=== PATIENT | female | born 1980 | race Hispanic/Latino ===

== ENCOUNTER 2019-08-29 17:40 | Inpatient (IN) | payer OTHER ==
[~2019-08-29] VITALS: Ht 170.2 cm; Wt 95.9 kg
[2019-08-29] MEDS ORDERED: ONDANSETRON HCL INJ 2MG/ML 2ML 2 MG/ML VIAL IV STA (18:39)
[2019-08-29] MEDS ORDERED: MORPHINE SULFATE 5 MG/ML VIAL IV ONE (18:45)
[2019-08-29] MEDS ORDERED: SODIUM CHLORIDE 0.9% 1000ML 1,000 ML IV SCH (18:45)
[2019-08-29] MEDS ORDERED: MORPHINE SULFATE INJ 4 MG/ML INJ 1ML IV ONE (19:00)
[2019-08-29 19:16] LABS: BILIRUBIN,URINE NEGATIVE (NEGATIVE); CLARITY,URINE CLEAR (CLEAR); COLOR,URINE YELLOW (YELLOW); KETONES,URINE NEGATIVE (NEGATIVE); LEUKOCYTE ESTERASE ,URINE TRACE (NEGATIVE); NITRITE,URINE NEGATIVE (NEGATIVE); PROTEIN,URINE DIPSTICK NEGATIVE (NEGATIVE); URINE UROBILINOGEN 0.2 mg/dL (0.2 - 1)
[2019-08-29 19:29] LABS: BACTERIA,URINE MODERATE /HPF; EPITHELIAL CELLS,URINE FEW /LPF; RBC,URINE 0-5 /HPF (0-5)
[2019-08-29 19:38] LABS: BASOPHILS % 0.2 % (0.0-1.0); EOSINOPHILS # (AUTO) 0.2 (0.0-0.4); EOSINOPHILS % 1.2 % (0.0-6.0); HEMATOCRIT 42.1 % (34.2-44.1); HEMOGLOBIN 14.6 g/dL (12.0-16.0); LYMPHOCYTES # (AUTO) 1.6 (1.0-3.2); LYMPHOCYTES % 10.4 % (18.0-39.1); MEAN CORPUSCULAR HEMOGLOBIN 33.3 pg (28-32); MEAN CORPUSCULAR HGB CONC 34.7 g/dL (31-35); MEAN CORPUSCULAR VOLUME 96.1 fL (81-99); MONOCYTES # (AUTO) 0.9 (0.2-0.8); MONOCYTES % 6.2 % (4.4-11.3); NEUTROPHILS # (AUTO) 12.5 (2.1-6.9); NEUTROPHILS % 81.5 % (38.7-80.0); PLATELET COUNT 300 x10e3/uL (140-360); RED BLOOD COUNT 4.38 x10e6/uL (3.6-5.1); RED CELL DISTRIBUTION WIDTH 11.9 % (11.7-14.4)
[2019-08-29 19:50] LABS: BLOOD UREA NITROGEN 12 mg/dL (7-26); BUN/CREATININE RATIO 16 (6-25); CALCIUM 9.7 mg/dL (8.4-10.2); CARBON DIOXIDE 26 mmol/L (22-29); CHLORIDE 103 mmol/L (98-107); CREATININE, SERUM 0.75 mg/dL (0.57-1.11); EST GLOMERULAR FILTRATION RATE > 60 ML/MIN (60-); GLUCOSE 92 mg/dL (74-118); SODIUM 138 mmol/L (136-145)
--- NOTE | 2019-08-29 20:29 | Diagnostic Imaging Report ---
EXAMINATION: CT of the abdomen and pelvis without contrast. TECHNIQUE: Helical CT images of the abdomen and pelvis were performed from the lung bases to the lesser trochanters without contrast. Coronal and sagittal reformatted images were obtained.Dose modulation, iterative reconstruction, and/or weight based adjustment of the mA/kV was utilized to reduce the radiation dose to as low as reasonably achievable. COMPARISON: None. CLINICAL HISTORY:Left-sided abdominal pain DISCUSSION: ABDOMEN/PELVIS: LOWER THORAX:Unremarkable. HEPATOBILIARY: No focal hepatic lesions. No intra-or extrahepatic biliary ductal dilation. The gallbladder is normal. SPLEEN: No splenomegaly. PANCREAS: No focal masses or ductal dilatation. ADRENALS: No adrenal nodules. KIDNEYS/URETERS: Bilateral punctate renal calculi. Mild left perinephric stranding. The left renal collecting system is duplex with 2 ureters proximally. PELVIC ORGANS/BLADDER: The bladder is normal. PERITONEUM/RETROPERITONEUM: No free air or fluid. LYMPH NODES: No intra-abdominal, retroperitoneal, pelvic or inguinal lymphadenopathy. VESSELS: Calcified pelvic phleboliths. GI TRACT: No distention or wall thickening. The appendix is normal. BONES AND SOFT TISSUE: No bony destructive lesions. No soft tissue abnormalities. IMPRESSION: Nonobstructing bilateral renal calculi. Signed by: Dr. Keon Salomon M.D. on 08/29/2019 8:26 PM
[2019-08-29] MEDS ORDERED: CEFTRIAXONE SOD 1 GM/NS 50 ML 50 ML IV ONE (20:30)
[2019-08-29] MEDS ORDERED: HYDROMORPHONE 1MG/1ML INJ IV STA (20:56)
[2019-08-29] MEDS ORDERED: MORPHINE SULFATE 2 MG/ML SYR 1ML IV PRN (21:00)
[2019-08-29] MEDS: SODIUM CHLORIDE 0.9% 1000ML 1,000 ML IV SCH (21:35)
[2019-08-29] MEDS: CEFTRIAXONE SOD 1 GM/NS 50 ML 50 ML IV SCH (21:35)
[2019-08-30] VITALS (10 sets, daily range): BP systolic 117–147; BP diastolic 57–71
[2019-08-30] MEDS: ONDANSETRON HCL INJ 2MG/ML 2ML 2 MG/ML VIAL IV PRN ×3 (00:13→18:48)
[2019-08-30] MEDS: MORPHINE SULFATE INJ 4 MG/ML INJ 1ML IV PRN ×4 (00:13→18:48)
[2019-08-30] MEDS: SODIUM CHLORIDE 0.9% 1000ML 1,000 ML IV SCH ×2 (05:35→15:00)
[2019-08-30 05:48] LABS: BASOPHILS % 0.3 % (0.0-1.0); EOSINOPHILS # (AUTO) 0.1 (0.0-0.4); EOSINOPHILS % 0.9 % (0.0-6.0); HEMATOCRIT 39.8 % (34.2-44.1); HEMOGLOBIN 13.3 g/dL (12.0-16.0); LYMPHOCYTES # (AUTO) 1.6 (1.0-3.2); LYMPHOCYTES % 11.6 % (18.0-39.1); MEAN CORPUSCULAR HEMOGLOBIN 32.7 pg (28-32); MEAN CORPUSCULAR HGB CONC 33.4 g/dL (31-35); MEAN CORPUSCULAR VOLUME 97.8 fL (81-99); NEUTROPHILS # (AUTO) 11.2 (2.1-6.9); NEUTROPHILS % 79.8 % (38.7-80.0); PLATELET COUNT 246 x10e3/uL (140-360); RED BLOOD COUNT 4.07 x10e6/uL (3.6-5.1); RED CELL DISTRIBUTION WIDTH 12.1 % (11.7-14.4)
[2019-08-30 06:12] LABS: ALANINE AMINOTRANSFERASE 22 IU/L (0-55); ALBUMIN 3.3 g/dL (3.5-5.0); ALBUMIN/GLOBULIN RATIO 1.1 (0.8-2.0); ALKALINE PHOSPHATASE 68 IU/L (40-150); BLOOD UREA NITROGEN 8 mg/dL (7-26); BUN/CREATININE RATIO 11 (6-25); CALCIUM 8.5 mg/dL (8.4-10.2); CARBON DIOXIDE 25 mmol/L (22-29); CHLORIDE 105 mmol/L (98-107); CREATININE, SERUM 0.73 mg/dL (0.57-1.11); EST GLOMERULAR FILTRATION RATE > 60 ML/MIN (60-); GLUCOSE 106 mg/dL (74-118); SODIUM 138 mmol/L (136-145)
[2019-08-30] MEDS ORDERED: HYDRALAZINE HCL 20 MG/ML VIAL IV PRN (07:30)
[2019-08-30] MEDS ORDERED: MELATONIN 5 MG TABLET PO PRN (07:30)
[2019-08-30] MEDS ORDERED: ACETAMIN/BUTALBITAL/CAFFEINE TAB PO PRN (08:15)
--- NOTE | 2019-08-30 19:00 | NUR ---
Bedside rounds completed with morning nurse. Pt alert and oriented to name. Lying in bed HOB 75 degrees. No c/o pain at this time. Call light within reach. Will continue to monitor.
[2019-08-30] MEDS: CEFTRIAXONE SOD 1 GM/NS 50 ML 50 ML IV SCH (21:00)
[2019-08-30] MEDS: ACETAMINOPHEN 325 MG TAB PO PRN (22:45)
--- NOTE | 2019-08-30 22:45 | NUR ---
Temp 102.3 oral, Tylenol 650mg admin. Tepid towel to forehead. Accepted 4oz water. Call jay within reach.
[2019-08-31] VITALS (7 sets, daily range): BP systolic 109–143; BP diastolic 57–76
[2019-08-31] MEDS: MORPHINE SULFATE INJ 4 MG/ML INJ 1ML IV PRN (02:00)
[2019-08-31] MEDS: SODIUM CHLORIDE 0.9% 1000ML 1,000 ML IV SCH ×4 (02:00→20:49)
--- NOTE | 2019-08-31 02:00 | NUR ---
Temp 100.5 oral, shivering and chills. c/o 9/10 left side pain. Morphine prn admin. Call jay within reach.
[2019-08-31] MEDS ORDERED: ACETAMINOPHEN 325 MG TAB PO ONE (03:15)
--- NOTE | 2019-08-31 03:25 | NUR ---
Temp 102.6 oral, Obdulia FERNANDEZ ordered x1 dose Tylenol 650mg admin. Will continue to monitor. Call jay within reach.
--- NOTE | 2019-08-31 03:50 | NUR ---
Temp 101.6 oral, Decreased left side pain 3/10. Call jay within reach.
--- NOTE | 2019-08-31 05:50 | NUR ---
Temp 97.7 oral. Patient denies shivering and chills. States, "I feel better". Call jay within reach.
[2019-08-31 05:51] LABS: BASOPHILS % 0.3 % (0.0-1.0); EOSINOPHILS # (AUTO) 0.1 (0.0-0.4); HEMATOCRIT 38.3 % (34.2-44.1); LYMPHOCYTES # (AUTO) 0.9 (1.0-3.2); LYMPHOCYTES % 8.8 % (18.0-39.1); MEAN CORPUSCULAR HEMOGLOBIN 32.7 pg (28-32); MEAN CORPUSCULAR HGB CONC 33.9 g/dL (31-35); MEAN CORPUSCULAR VOLUME 96.5 fL (81-99); MONOCYTES # (AUTO) 0.8 (0.2-0.8); MONOCYTES % 8.4 % (4.4-11.3); NEUTROPHILS # (AUTO) 8.2 (2.1-6.9); NEUTROPHILS % 81.2 % (38.7-80.0); PLATELET COUNT 202 x10e3/uL (140-360); RED BLOOD COUNT 3.97 x10e6/uL (3.6-5.1); RED CELL DISTRIBUTION WIDTH 11.8 % (11.7-14.4)
[2019-08-31 06:12] LABS: ANION GAP 14.2 mmol/L (8-16); BLOOD UREA NITROGEN 9 mg/dL (7-26); BUN/CREATININE RATIO 12 (6-25); CALCIUM 8.7 mg/dL (8.4-10.2); CARBON DIOXIDE 21 mmol/L (22-29); CHLORIDE 105 mmol/L (98-107); CREATININE, SERUM 0.76 mg/dL (0.57-1.11); EST GLOMERULAR FILTRATION RATE > 60 ML/MIN (60-); GLUCOSE 91 mg/dL (74-118); POTASSIUM 3.2 mmol/L (3.5-5.1); SODIUM 137 mmol/L (136-145)
[2019-08-31] MEDS: ACETAMINOPHEN 325 MG TAB PO PRN ×2 (11:49→16:44)
--- NOTE | 2019-08-31 13:50 | Consultation ---
DATE OF CONSULTATION: 08/30/2019 Urology Consultation Consultation is called by Dr. Haile. CHIEF COMPLAINT AND REASON FOR CONSULTATION: Kidney stones. HISTORY OF PRESENT ILLNESS: Ms. Heredia is a very pleasant 39-year-old female, admitted to the hospital with abdominal pain, was found to have bilateral punctate kidney stones. Positive dysuria denied gross hematuria. PAST MEDICAL HISTORY: Denied. MEDICATIONS: Please see MAR. ALLERGIES: NKDA. SOCIAL HISTORY: Denied smoking or drinking. FAMILY HISTORY: Denied urologic stones or malignancies. REVIEW OF SYSTEMS: Noncontributory other than problems mentioned above for 12-organ systems. PHYSICAL EXAMINATION: GENERAL: Middle-aged female, in no acute distress. VITAL SIGNS: Temperature 98.1, pulse 79, respirations 19, and blood pressure 131/71. BMI 33. HEENT: Sclerae anicteric. NECK: Supple. BACK: Without costovertebral angle tenderness bilaterally. ABDOMEN: Soft, nontender, and nondistended. No palpable mass. No palpable hernias. No palpable adenopathy. : Normal female external genitalia. EXTREMITIES: No edema. NEURO: Moves all 4 extremities. PSYCH: Alert. Mood appropriate. SKIN: Intact. Normal color. PERTINENT LABORATORY DATA: CT scan revealing bilateral punctate kidney stones, left duplicated collecting system. Urinalysis 10/08; whites 0, 5 reds. Sodium 138, potassium 4.0, chloride 105, bicarb 25, BUN 8, creatinine 0.73, and glucose 106. Hemoglobin 13, hematocrit 34, platelet count 246,000, and white cell count 14,000. IMPRESSION: 1. Bilateral kidney stones. 2. Urinary tract infections. 3. Microscopic hematuria. 4. Coagulopathy. 5. Hypertension. 6. Left-sided congenital duplication of kidney. 7. Leukocytosis. PLAN: The patient is on broad-spectrum antibiotics; for the small stones, employ a trial of passage. Microscopic hematuria, electively can have a cystoscopy. Thank you for allowing me to participate in the care of your patient. We will be happy to follow along with you. MD SHIVANI Albarran/MODL /[id number] cc: Daniel Haile MD MTDD
[2019-08-31] MEDS ORDERED: POLYETHYLENE GLYCOL 3350 17 GM PACK PO PRN (15:00)
--- NOTE | 2019-08-31 15:29 | Diagnostic Imaging Report ---
EXAMINATION: CHEST SINGLE (PORTABLE) INDICATION: Fever. COMPARISON: None FINDINGS: TUBES and LINES: None. LUNGS: Lungs are well inflated. Mild patchy left basilar opacity, likely atelectasis. There is no evidence of lobar lobar pneumonia or pulmonary edema. PLEURA: No pleural effusion or pneumothorax. HEART AND MEDIASTINUM: The cardiomediastinal silhouette is unremarkable. BONES AND SOFT TISSUES: No acute osseous abnormality. UPPER ABDOMEN: No free air under the diaphragm. IMPRESSION: No acute radiographic abnormality. Signed by: Dr. Julianne Rosas MD on 08/31/2019 3:26 PM
[2019-08-31 16:10] LABS: MAGNESIUM 1.7 MG/DL (1.3-2.1)
[2019-08-31] MEDS: FAMOTIDINE 20 MG TAB PO SCH (16:44)
[2019-08-31] MEDS: DOCUSATE SODIUM 100 MG CAP PO SCH (16:44)
--- NOTE | 2019-08-31 16:45 | NUR ---
JIM Floyd notified of mag and phos levels.
[2019-08-31] MEDS ORDERED: MAGNESIUM OXIDE 400 MG TAB PO ONE (17:00)
[2019-08-31] MEDS: PHOSPHORUS 250 MG TAB PO SCH (17:44)
--- NOTE | 2019-08-31 20:08 | NUR ---
RECEIVED T IN BED AOX3 .RESPIRATIONS AE EVEN AND UNLABORED DENIES PAIN PT HAS TEM 100.7 .FAMILY AT THE .BEDSIDE .CALL LIGHT WITH IN REACH .CONTINUE TO MONITOR
[2019-08-31] MEDS: CEFTRIAXONE SOD 1 GM/NS 50 ML 50 ML IV SCH ×2 (21:25→21:48)
[2019-09-01] VITALS: BP 142/82
[2019-09-01] MEDS: ACETAMINOPHEN 325 MG TAB PO PRN
[2019-09-01 04:00] VITALS: BP 99/60
[2019-09-01 05:13] LABS: BASOPHILS % 0.6 % (0.0-1.0); EOSINOPHILS % 0.6 % (0.0-6.0); HEMATOCRIT 40.1 % (34.2-44.1); HEMOGLOBIN 13.6 g/dL (12.0-16.0); MEAN CORPUSCULAR HEMOGLOBIN 32.9 pg (28-32); MEAN CORPUSCULAR HGB CONC 33.9 g/dL (31-35); MEAN CORPUSCULAR VOLUME 97.1 fL (81-99); MONOCYTES # (AUTO) 0.6 (0.2-0.8); MONOCYTES % 11.9 % (4.4-11.3); NEUTROPHILS # (AUTO) 3.2 (2.1-6.9); NEUTROPHILS % 65.7 % (38.7-80.0); PLATELET COUNT 169 x10e3/uL (140-360); RED BLOOD COUNT 4.13 x10e6/uL (3.6-5.1); RED CELL DISTRIBUTION WIDTH 11.9 % (11.7-14.4)
[2019-09-01 05:35] LABS: ANION GAP 13.3 mmol/L (8-16); BLOOD UREA NITROGEN 6 mg/dL (7-26); BUN/CREATININE RATIO 8 (6-25); CALCIUM 8.6 mg/dL (8.4-10.2); CARBON DIOXIDE 21 mmol/L (22-29); CHLORIDE 106 mmol/L (98-107); CREATININE, SERUM 0.71 mg/dL (0.57-1.11); EST GLOMERULAR FILTRATION RATE > 60 ML/MIN (60-); GLUCOSE 88 mg/dL (74-118); POTASSIUM 3.3 mmol/L (3.5-5.1); SODIUM 137 mmol/L (136-145)
--- NOTE | 2019-09-01 07:00 | NUR ---
received am report from nurse and morning rounds done. pt is alert resting in bed, no s/s of distress. call light within reach and instructed pt to call nurse for help.
[2019-09-01] MEDS: SODIUM CHLORIDE 0.9% 1000ML 1,000 ML IV SCH (07:24)
--- NOTE | 2019-09-01 07:30 | NUR ---
TEMPERATURE IS 101.2 AND GIVEN TYLENOL AND TEM WENT DOWN TO 98.7 C/O HEADACHE AND GIVEN ORDERED PAIN. MEDICATION .CONTINUE TO MONITOR .CALL LIGHT WITH IN REACH .BEDSIDE REPORT GIVEN TO THE ONCOMING NURSE
[2019-09-01 07:34] VITALS: BP 115/77
[2019-09-01] MEDS: DOCUSATE SODIUM 100 MG CAP PO SCH (10:00)
[2019-09-01] MEDS: PHOSPHORUS 250 MG TAB PO SCH (10:00)
[2019-09-01] MEDS: FAMOTIDINE 20 MG TAB PO SCH (10:00)
[2019-09-01 10:21] VITALS: BP 115/77
[2019-09-01] MEDS ORDERED: ASCORBIC ACID 500 MG TAB PO SCH (10:30)
[2019-09-01] MEDS ORDERED: CEFUROXIME250 MG PO (11:00)
[2019-09-01] MEDS ORDERED: ASCORBIC ACID500 MG PO (11:00)
[2019-09-01] MEDS ORDERED: COLACE100 MG PO (11:00)
[2019-09-01] MEDS ORDERED: ACETAMINOPHEN325 M1 PO (11:00)
[2019-09-01] MEDS ORDERED: K-PHOS NEUTRAL250 MG PO (11:00)
[2019-09-01] MEDS ORDERED: POTASSIUM CHLORIDE 20 MEQ TAB CR PO ONE (11:30)
[2019-09-01 11:37] VITALS: BP 142/84
--- NOTE | 2019-09-01 22:17 | Discharge Summary ---
HISTORY: Ms. Heredia is a 39-year-old female, who was admitted with constant sharp left lower back pain that began on August 29 around 09:00 a.m. She had associated nausea and vomiting, but denied any dysuria, hematuria, or fever. Pain medications improved her symptoms. She has past medical history of migraines. No past surgical history. FAMILY HISTORY: The patient's father had diabetes mellitus and stroke. SOCIAL HISTORY: Drinks alcohol occasionally. ALLERGIES: PENICILLIN. MEDICATIONS: She is not taking any home medications. ADMISSION DIAGNOSES: 1. Nonobstructing bilateral renal calculi. 2. Urinary tract infection, present on arrival. 3. Obesity with BMI 33.1. 4. Migraines. DISCHARGE DIAGNOSES: 1. Escherichia coli urinary tract infection, present on arrival. 2. Nonobstructing bilateral punctate renal calculi. 3. Migraine headaches. 4. Acute hypophosphatemia. 5. Acute hypokalemia. HOSPITAL COURSE: On August 29 around 06:00 p.m., temperature 98.0, heart rate 79, respirations 18, blood pressure 142/91 with a pulse oximetry of 98. During her stay, maximum temperature was 102.6 on August 31 around 04:00 a.m. Most recent T-max 102.0 Around midnight last night. Currently, temperature 99.5, heart rate 70, blood pressure 115/77, respirations 18, oxygen saturation 100%. On admission WBCs 16.27, platelet count 200. BUN 12, creatinine 0.75, GFR greater than 60, potassium 4.0, lipase 14, amylase 62. Final urine culture that was collected on August 29 was positive for Escherichia coli. Two blood cultures were obtained on August 31 with final results pending. She had an abdomen and pelvis CT on August 29, which showed nonobstructing bilateral renal calculi. Chest x-ray on August 31 was negative. Consultation includes Dr. Herminio Andre and Dr. Nunez with Urology, who is following for Dr. Andre and saw the patient on August 31. Per his plan, the patient is on broad-spectrum antibiotics for the small stones, employ a trial of passage, microscopic hematuria. Electively, she can have a cystoscopy. Subjectively, the patient was seen yesterday, still having chills, headache, dizziness, palpitations, and nausea. This is improved considerably today. The patient states she still has chills and sweating a lot; however, the migraine headache, dizziness, palpitations, and nausea have all resolved. She had also complained of constipation, but after one dose of MiraLAX, she had a bowel movement last night. Yesterday, her phosphorus was 2.0 and magnesium 1.7. Potassium phosphate was started orally. Today, her white blood cell count is 4.81, potassium 3.3, BUN 6, creatinine 0.71, GFR greater than 60. I will ask the nurse to give 20 mEq of potassium chloride prior to the patient leaving. Also, send the patient home on potassium phosphate 250 mg p.o. daily for 3 days. We will keep her on Colace b.i.d. for 7 days, vitamin C twice a day added for the urinary tract infection, Tylenol p.r.n. for chills, fever, and pain. She still denies any hematuria. We will send her home on cefuroxime 250 mg p.o. q.12 hours for 7 days. The patient to follow up with Urology in 1 to 2 weeks. She currently does not have a PCP, but states she will find one. Activity level as tolerated. Continue regular diet. Dictated by Everett Nava NP MD JULIAN Miller/MARCUS /[id number]
== END 2019-09-01 12:16 | disposition home or self-care (01) | DRG 694 ==
LOC: ER 17:40 → ERHOLD 21:00 → MED/SURG2 08-30 00:03 → OBSVTOIN 08-31 13:41
PROVIDERS: ADMIT Internal Medicine; ATTEND Internal Medicine
DX: N20.0 Calculus of kidney (principal); N39.0 Urinary tract infection, site not specified; B96.20 Unspecified Escherichia coli [E. coli] as the cause of diseases classified elsewhere; E66.9 Obesity, unspecified; Z68.33 Body mass index [BMI] 33.0-33.9, adult; G43.909 Migraine, unspecified, not intractable, without status migrainosus; E83.39 Other disorders of phosphorus metabolism
CPT/HCPCS: 36415; 71045; 74176; 80048; 80053; 81001; 81025; 82150; 83036; 83690; 83735; 84100; 84443; 85025; 87040; 87086; 87186; 99284; G0378; J0696; J1170; J2270; J2405; J7030